=== PATIENT | female | born 1965 | race Caucasian/White ===

== ENCOUNTER 2018-10-02 21:26 | Emergency (ER) | payer OTHER ==
[~2018-10-02] VITALS: Ht 167.6 cm; Wt 86.2 kg
[2018-10-02] MEDS ORDERED: AMBIEN 5 MG TABL5 M1 (21:38)
[2018-10-02 22:27] LABS: ABSOLUTE BASOPHILS 0.1 thou/uL (0.0-0.2); ABSOLUTE EOSINOPHILS 0.4 thou/uL (0.0-0.7); ABSOLUTE LYMPHOCYTES 3.2 thou/uL (0.8-5.3); ABSOLUTE MONOCYTES 0.4 thou/uL (0.0-1.2); ABSOLUTE NEUTROPHILS 2.8 thou/uL (1.6-8.1); BASOPHILS 0.8 %; EOSINOPHILS 5.2 %; HEMATOCRIT 41.7 % (37.0-47.0); HEMOGLOBIN 13.9 gm/dL (12.0-15.0); LYMPHOCYTES 47.5 %; MCH 31.7 pg (26.0-34.0); MCHC 33.3 g/dL (28.0-37.0); MONOCYTES 5.2 %; MPV 7.2 fl. (7.2-11.1); NUCLEATED RBCS 0 /100WBC; PLATELET COUNT* 331 thou/uL (150-400); POLYS 41.3 %; RBC 4.39 mil/uL (4.20-5.00); RDW-CV 14.2 % (10.5-14.5); WBC 6.8 thou/uL (4.0-11.0)
[2018-10-02 22:29] LABS: URINE BILIRUBIN NEGATIVE (Negative); URINE BLOOD NEGATIVE (Negative); URINE CLARITY CLEAR; URINE COLOR YELLOW; URINE GLUCOSE-RANDOM NEGATIVE (Negative); URINE KETONES NEGATIVE (Negative); URINE LEUKOCYTES-REFLEX NEGATIVE (Negative); URINE NITRITE-REFLEX NEGATIVE (Negative); URINE PROTEIN NEGATIVE (Negative); URINE SPECIFIC GRAVITY <= 1.005 (1.005-1.030); URINE UROBILINOGEN 0.2 E.U./dl (0.2-1.0)
[2018-10-02 22:39] LABS: AMP/METHAMP Negative (Negative); BARBITURATES Negative (Negative); BENZODIAZEPINES Negative (Negative); COCAINE Negative (Negative); METHADONE Negative (Negative); OPIATES Negative (Negative); PCP Negative (Negative); THC Negative (Negative)
[2018-10-02 22:42] LABS: ALBUMIN 3.6 g/dL (3.4-5.0); ALCOHOL 212 mg/dL (<10); CALCIUM 8.7 mg/dL (8.5-10.1); CREATININE 0.8 mg/dL (0.6-1.3); SALICYLATE < 2.8 mg/dL (2.8-20.0); TOTAL BILIRUBIN 0.3 mg/dL (<0.1-1.0); TOTAL PROTEIN 7.3 g/dL (6.4-8.2)
[2018-10-02 22:45] LABS: ACETAMINOPHEN < 2 ug/mL (10-30)
[2018-10-03 07:29] VITALS: BP 154/76
== END 2018-10-03 07:31 | disposition short-term general hospital (02) ==
LOC: M.ERS 21:26
PROVIDERS: Emergency Medicine
DX: R45.851 Suicidal ideations (principal); F32.9 Major depressive disorder, single episode, unspecified; Z90.710 Acquired absence of both cervix and uterus; Z87.891 Personal history of nicotine dependence

== ENCOUNTER 2019-09-14 13:13 | Emergency (ER) | payer OTHER ==
[~2019-09-14] VITALS: Ht 167.6 cm; Wt 77.1 kg
[~2019-09-14 13:13] MED LIST: AMBIEN 5 MG TABL5 M1
[2019-09-14] MEDS ORDERED: DRIZALMA SPRINK20 MG PO (13:29)
[2019-09-14] MEDS ORDERED: LAMOTRIGINE250 MG PO (13:29)
[2019-09-14 14:49] LABS: INFLUENZA A ANTIGEN Negative (Negative); INFLUENZA B ANTIGEN Negative (Negative)
[2019-09-14] MEDS ORDERED: MEDROLDOSEPACK PO (14:57)
[2019-09-14] MEDS ORDERED: AZITHROMYCIN 2250 MG PO (14:57)
[2019-09-14 15:23] VITALS: BP 116/57
--- NOTE | 2019-09-16 15:02 | EKG ---
[place] [address] ELECTROCARDIOGRAM REPORT Name: TRIXIE BOSE Room: [facility] [place]#: [id number] Admission: 09/14/19 Attend Phys: Discharge: 09/14/19 Date of : 65 Date of Service: 09/14/19 1421 Report #: [id number] THIS REPORT FOR: //name// [facility] ED Test Date: 2019-09-14 Test Time: 14:21:37 Pat Name: TRIXIE BOSE Department: Room: Gender: F Physician'S Assistant: [place] : 1965 Requested By: Charles Lopez Order Number: [id number] MD: Mat Pinedo Measurements Intervals [place] Rate: 95 P: 86 VA: 171 QRS: 58 QRSD: 99 T: 64 QT: 345 QTc: 434 Interpretive Statements Sinus rhythm Baseline wander in lead(s) V1 No previous ECG available for comparison Electronically Signed On 09-16-2019 15:01:22 MINE TECHNICIAN by Mat Pinedo [email or web address] <ELECTRONICALLY SIGNED> By: Richard Pinedo MD, [facility] 09/16/19 1501 20 20 Richard Piendo MD, [facility] /EPI
== END 2019-09-14 15:25 | disposition home or self-care (01) ==
LOC: M.ERS 13:13
PROVIDERS: Nurse Practitioner Psychiatric/Mental Health
DX: J06.9 Acute upper respiratory infection, unspecified (principal); Z87.891 Personal history of nicotine dependence